=== PATIENT | male | born 1990 | race Caucasian/White ===

== ENCOUNTER 2020-03-21 15:10 | Emergency (ER) | payer MEDICAID ==
[~2020-03-21] VITALS: Ht 177.8 cm; Wt 72.6 kg
--- NOTE | 2020-03-21 15:18 | NUR ---
[id number], from home, standing 1 block away from moms home calling him to come back but not responding, BS 87. Patient opens eyes, but non-verbal, not answering questions, just stares. 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
[2020-03-21 16:29] LABS: BASOPHILS # (AUTO) 0.1 /CMM (0.0-0.2); BASOPHILS % (AUTO) 0.7 % (0.0-2.0); EOSINOPHILS % (AUTO) 0.7 % (0.0-6.0); HEMATOCRIT 40 % (39-51); LYMPHOCYTES # (AUTO) 1.9 /CMM (0.8-4.8); LYMPHOCYTES % (AUTO) 24.4 % (20.0-44.0); MEAN CORPUSCULAR HGB CONC 33 g/dl (31.0-36.0); MEAN CORPUSCULAR VOLUME 92 fL (80-96); MONOCYTES # (AUTO) 0.5 /CMM (0.1-1.30); MONOCYTES % (AUTO) 6.9 % (2.0-12.0); NEUTROPHILS # (AUTO) 5.2 /CMM (1.8-8.9); NEUTROPHILS % (AUTO) 67.3 % (43.0-81.0); PLATELET COUNT (AUTO) 220 /CMM (150-450); RED BLOOD CELL COUNT(AUTO) 4.32 MIL/uL (4.5-6.0); WHITE BLOOD COUNT (AUTO) 7.7 K/uL (4.3-11.0)
[2020-03-21 16:37] LABS: CALCIUM, SERUM 9.7 mg/dL (8.5-10.1); CARBON DIOXIDE 23 mmol/L (21-32); CHLORIDE 103 mmol/L (98-107); CREATININE 0.8 mg/dL (0.6-1.3); GLUCOSE 83 mg/dL (74-106); POTASSIUM 3.9 mmol/L (3.5-5.1); SODIUM SERUM 139 mmol/L (136-145); UREA NITROGEN, BLOOD 15 mg/dL (7-18)
[2020-03-21 16:43] LABS: ALANINE AMINOTRANSFERASE 29 U/L (12-78); ALBUMIN 4.5 g/dL (3.4-5.0); ALKALINE PHOSPHATASE 65 U/L (46-116); ASPARTATE AMINOTRANSFERASE 20 U/L (15-37); BILIRUBIN,DIRECT 0.1 mg/dL (0.0-0.2); BILIRUBIN,TOTAL 0.5 mg/dL (0.2-1.0); TOTAL PROTEIN, SERUM 8.3 g/dL (6.4-8.2)
[2020-03-21 16:48] LABS: ACETAMINOPHEN < 2 ug/ml (10-30); ALCOHOL, BLOOD < 3 mg/dL (0-0); SALICYLATE < 2.8 mg/dL (2.8-20.0)
--- NOTE | 2020-03-21 16:53 | NUR ---
patient non-verbal, has no reaction to anything at this time.
--- NOTE | 2020-03-21 16:54 | NUR ---
URINE SENT TO LAB
--- NOTE | 2020-03-21 17:30 | NUR ---
PATIENT STILL CATATONIC. NO REACTION OR VERBAL RESPONSE AT THIS TIME.
[2020-03-21 17:40] LABS: APPEARANCE,URINE Clear (CLEAR); BILIRUBIN,URINE Negative (NEGATIVE); BLOOD, URINE Negative Ery/uL (NEGATIVE); COLOR,URINE Yellow (YELLOW); KETONES,URINE Negative (NEGATIVE); LEUKOCYTE ESTERASE ,URINE Negative (NEGATIVE); NITRITE, URINE Negative (NEGATIVE); PROTEIN,URINE Negative (NEGATIVE); UGLUCOSE Negative (NEGATIVE)
--- NOTE | 2020-03-21 18:45 | NUR ---
NATALIA WEBERW CALLED FOR EVAL
--- NOTE | 2020-03-21 19:29 | NUR ---
Patient is resting comfortably in bed. Easily aroused. VSS.
--- NOTE | 2020-03-21 19:57 | NUR ---
SY (BROTHER) CONTACT INFORMATION: [phone]
--- NOTE | 2020-03-21 21:37 | NUR ---
PT GOING TO [facility] NUMBER FOR REPORT [phone] EXT [phone] (EAST UNIT) ADMTTING PSYCH MD: DR. WORLEY ADMITTING DIAGNOSIS: SCHIZOPHRENIA
--- NOTE | 2020-03-21 21:39 | NUR ---
CALLED [facility] FOR TRANSPORTATION ETA [phone]
--- NOTE | 2020-03-21 21:40 | NUR ---
PT PALCED ON 5150 FOR GD
--- NOTE | 2020-03-21 21:50 | NUR ---
REPORT GIVEN TO DANIELLE THOMAS FOR FANNY
[2020-03-21 22:32] VITALS: BP 107/55
--- NOTE | 2020-03-21 22:32 | NUR ---
REPORT GIVEN TO TRANSPORT. PT TRANSFERED.
--- NOTE | 2020-03-21 22:34 | NUR ---
INFORMED PT'S BROTHER RYAN ([phone]) PT IS BEING TRANSFERRED
== END 2020-03-21 22:40 ==
LOC: ER 15:11
DX: F20.2 Catatonic schizophrenia (principal); F31.9 Bipolar disorder, unspecified
CPT/HCPCS: 36415; 80048; 80076; 80305; 80307; 80329; 81001; 85025; 99285; G0480; 81000-TC

== ENCOUNTER 2020-09-15 13:19 | Emergency (ER) | payer MEDICAID ==
[~2020-09-15] VITALS: Ht 167.6 cm; Wt 82.6 kg
--- NOTE | 2020-09-15 13:30 | NUR ---
PT BIB SELF C/O ANXIETY. VS CHECKED. STABLE. DR. BENNETT BY BEDSIDE.
[2020-09-15 13:43] VITALS: BP 128/71
--- NOTE | 2020-09-15 13:43 | NUR ---
Patient discharged to home in stable condition. Written and verbal after care instructions given. Patient verbalizes understanding of instruction.
== END 2020-09-15 13:43 | disposition home or self-care (01) ==
LOC: ER 13:27
DX: G47.00 Insomnia, unspecified (principal); F41.9 Anxiety disorder, unspecified; F32.9 Major depressive disorder, single episode, unspecified

== ENCOUNTER 2022-09-09 17:15 | Emergency (ER) | payer MEDICAID ==
[~2022-09-09] VITALS: Ht 180.3 cm; Wt 83.9 kg
[2022-09-09 17:38] VITALS: BP 117/69
[2022-09-09 20:19] LABS: BILIRUBIN,URINE NEGATIVE (NEGATIVE); COLOR,URINE YELLOW (YELLOW); LEUKOCYTE ESTERASE ,URINE NEGATIVE (NEGATIVE); NITRITE, URINE NEGATIVE (NEGATIVE); PROTEIN,URINE NEGATIVE (NEGATIVE); UGLUCOSE NEGATIVE (NEGATIVE); UROBILINOGEN,URINE 0.2 EU/dL (0.2)
[2022-09-09 20:51] LABS: BACTERIA,URINE None seen /HPF (None Seen); RBC,URINE 0-2 /HPF (0-2); SQUAMOUS EPITHELIAL CELL,UR 0-2 /HPF (None Seen); WBC,URINE 0-2 /HPF (0-3)
[2022-09-09] MEDS ORDERED: IBUP-1955 PO (20:54)
[2022-09-09] MEDS ORDERED: CEPH500T PO (20:54)
--- NOTE | 2022-09-09 21:03 | NUR ---
Patient discharged to home in stable condition. Written and verbal after care instructions given. Patient verbalizes understanding of instruction.
== END 2022-09-09 21:05 | disposition left against medical advice (07) ==
LOC: ER 17:16
DX: R30.0 Dysuria (principal); F20.9 Schizophrenia, unspecified; F32.A Depression, unspecified; Z60.2 Problems related to living alone; Z79.899 Other long term (current) drug therapy
CPT/HCPCS: 81001; 87491; 87591